=== PATIENT | female | born 1945 | race Caucasian/White ===

== ENCOUNTER 2018-07-01 14:53 | Emergency (ER) | payer OTHER ==
[~2018-07-01] VITALS: Ht 160 cm; Wt 54.4 kg
[2018-07-01 15:00] VITALS: BP 18/99; Ht 160 cm; Wt 54.4 kg
== END 2018-07-01 16:23 | disposition home or self-care (01) ==
LOC: ED 14:53
DX: S01.112A Laceration without foreign body of left eyelid and periocular area, initial encounter (principal); I10 Essential (primary) hypertension; Z85.841 Personal history of malignant neoplasm of brain; W01.0XXA Fall on same level from slipping, tripping and stumbling without subsequent striking against object, initial encounter; Y93.89 Activity, other specified; Y92.89 Other specified places as the place of occurrence of the external cause; Y99.8 Other external cause status

== ENCOUNTER 2019-03-13 18:37 | Inpatient (IN) | payer OTHER ==
[~2019-03-13] VITALS: Ht 154.9 cm; Wt 68.0 kg
[2019-03-13 18:44] VITALS: Ht 154.9 cm; Wt 68.0 kg
--- NOTE | 2019-03-13 18:48 | NUR ---
PT WAS B/B AMBULANCE FROM HOME FOR NEAR-SYNCOPE EPISODE AND ALOC. PT WAS STILL LETHARGIC, BUT FOLLOWS COMMAND, LOOKS TIRED. NO SOB, BREATHING EVEN, ON O2 2L. NC.
[2019-03-13 19:05] LABS: BASOPHIL % 0.3 % (0-2); PLATELET COUNT 177 x10^3mcL (130-400)
[2019-03-13 19:13] LABS: CALCIUM 8.4 mg/dL (8.5-10.1); CARBON DIOXIDE 27.1 mmol/L (21-32); CHLORIDE SERUM 107 mmol/L (98-107); GLUCOSE SERUM 125 mg/dL (74-106); POTASSIUM SERUM 4.1 mmol/L (3.5-5.1); SODIUM SERUM 144 mmol/L (136-145)
[2019-03-13 19:17] LABS: ALBUMIN 3.5 g/dL (3.4-5.0); ALKALINE PHOSPHATASE 106 U/L (46-116); ALT/SGPT 49 U/L (14-59); AST/SGOT 32 U/L (15-37); BILIRUBIN TOTAL 0.2 mg/dL (0.20-1.00); LIPASE 171 IU/L (73-393); TOTAL PROTEIN, SERUM 6.7 g/dL (6.4-8.2)
--- NOTE | 2019-03-13 19:39 | NUR ---
PT. LAYING IN BED, AAOX3, SLOW TO ANSWER, SOFT VOICE, NO ACUTE DISTRESS NOTED, INSTRUCTED PT TO PROVIDE URINES SAMPLE, PLACED URINE BEDPAN AT BEDSIDE, DENIES PAIN, VSS, WILL CONTINUE TO MONITOR.
--- NOTE | 2019-03-13 19:42 | NUR ---
REPORT RECEIVED FROM JAYLYN BURTON
[2019-03-13 21:40] LABS: UA SPECIFIC GRAVITY <=1.005 (1.005-1.035); microscopic required? YES; urine erythrocyte NEGATIVE (NEGATIVE)
[2019-03-13 21:59] LABS: AMPHETAMINE QUAL UR NONE DETECTED (See below)
--- NOTE | 2019-03-13 22:55 | NUR ---
CLEANED AND CHANGED PT GOWN AND LINENS
--- NOTE | 2019-03-13 23:05 | NUR ---
RECEIVED PT VIA GURNEY FROM E/D, ACCOMPANIED BY RN AND TRANSPORTER. PT A/A/O X 3 (PERSON, PLACE, PURPOSE), FORGETFUL, SLOW SPEECH, CALM, COOPERATIVE TO CARE; WEARS GLASSES (NOT W/ PT); FRENCH-SPEAKING ONLY, INGE BERRY BY BEDSIDE FOR TRANSLATION. ON TELE # 26, HR 88, SR + FREQUENT PVC'S, DENIES CHEST PAIN OR DISCOMFORT AT THIS TIME. SCD BY BEDSIDE. LUNGS CTAB, CHEST RISING EVENLY, 2LNC, 94%, NO ACUTE RESPIRATORY DISTRESS NOTED. ABD SOFT, ROUND, NON-TENDER, NORMOACTIVE BOWEL SOUNDS X 4 QUADS, LAST BM 03/12/19, DIARRHEA; WEARS DENTURES (NOT W/ PT); POOR PO INTAKE > 3DAYS, LOST > 10# X 1 MO. UA +FEW BACTERIA AND LEUKS, DENIES DYSURIA. GENERALIZED WEAKNESS, AMBULATORY @ BASELINE, BEDBOUND @ THIS TIME; FELL 03/13/19; C/O CHRONIC, INTERMITTENT SHARP BACK PAIN THAT IS EXACERBATED BY MOVEMENT; FALL RISK PROTOCOL IN PLACE. IV SITE LAC 18G, CDI. ORIENTED PT TO ROOM, BED CONTROLS, CALL LIGHT SYSTEM. SIDE RAILS UP X 2, BED IN LOW POSITION. WILL ENDORSE TO MICHEAL PARKINSON.
[2019-03-13 23:53] VITALS: BP 139/75
[2019-03-14 00:37] LABS: FREE T4 1.27 ng/dL (0.76-1.46); FREE THYROXINE INDEX 3.6 ug/dL (1.4-4.5)
[2019-03-14 00:38] LABS: T3 TOTAL 1.37 ng/mL
[2019-03-14] MEDS ORDERED: SEROQUEL25 MG PO (01:11)
[2019-03-14] MEDS ORDERED: SYNTHROID0.112 MG PO (01:13)
[2019-03-14] MEDS ORDERED: ENALAPRIL MALEA10 MG PO (01:14)
[2019-03-14] MEDS ORDERED: DONEPEZIL HCL10 MG PO (01:15)
[2019-03-14] MEDS ORDERED: NOR5 PO (01:16)
[2019-03-14] MEDS ORDERED: ATORVASTATIN CA40 M1 PO (01:22)
[2019-03-14] MEDS ORDERED: ASPIRIN ADULT L81 M3 PO (01:23)
[2019-03-14] MEDS ORDERED: HYDRALAZINE HCL25 MG PO (01:24)
[2019-03-14] MEDS ORDERED: VIMPAT100 M1 PO ×2 (01:25→11:29)
[2019-03-14] MEDS ORDERED: LIPI20 PO (01:28)
[2019-03-14 04:25] VITALS: BP 124/69
--- NOTE | 2019-03-14 05:00 | NUR ---
INFORMED DR. VILLASENOR REGARDING ORTHOSTIC VITALS.
--- NOTE | 2019-03-14 05:13 | NUR ---
PT SLEPT AT LONG INTERVALS. SHE WAS CALM THROUGHOUT THE NIGHT. SHE HAD NO C/O PAIN. SHE AMBULATED TO THE RESTROOM X1 W/ ASSISTANCE. NS 500 CC X1 GIVEN ORDERED. ALL NEEDS ATTENDED TO.
[2019-03-14 07:16] LABS: BASOPHIL % 0.1 % (0-2); PLATELET COUNT 168 x10^3mcL (130-400)
--- NOTE | 2019-03-14 07:45 | NUR ---
RECEIVED PT IN BED. ASSESSED AND DOCUMENTED. DENIES ANY PAIN THIS TIME. STABLE. SAFETY PRECAUTIONS ARE IN PLACE. WILL MONITOR.
[2019-03-14 07:52] LABS: CARBON DIOXIDE 24.8 mmol/L (21-32); CHLORIDE SERUM 112 mmol/L (98-107); CREATININE SERUM 0.7 mg/dL (0.6-1.0); GLUCOSE SERUM 89 mg/dL (74-106); MAGNESIUM 2.1 mg/dL (1.8-2.4); PHOSPHOROUS 3.9 mg/dL (2.5-4.9); POTASSIUM SERUM 3.8 mmol/L (3.5-5.1); SODIUM SERUM 147 mmol/L (136-145)
[2019-03-14 09:45] VITALS: BP 145/71
[2019-03-14 11:50] LABS: UA SPECIFIC GRAVITY <=1.005 (1.005-1.035); microscopic required? YES; urine erythrocyte NEGATIVE (NEGATIVE)
--- NOTE | 2019-03-14 13:00 | NUR ---
PT RESTING IN BED COMFORTABLY, STABLE. ATE LUNCH. FAMILY AT BEDSIDE.
[2019-03-14 13:50] VITALS: BP 152/74
--- NOTE | 2019-03-14 14:00 | NUR ---
AWARE ABOUT UA RESULT.
[2019-03-14] MEDS ORDERED: LEVOFLOXACIN500 M1 PO (14:43)
[2019-03-14 17:04] VITALS: BP 139/80
--- NOTE | 2019-03-14 17:30 | NUR ---
DISCHARGE INSTRUCTIONS GIVEN. PRESCRIPTION SENT TO PHARMACY BY DOCTOR. PB SIGNED AND SENT WITH PT. IV REMOVED AND DRESSING APPLIED. TELE REMOVED. PT IS STABLE. NO DIZZINESS, DENIES ANY PAIN. [employer] SUPER[employer]OR WHEELED PT DOWN TO LOBBY ACCOMPANIED WITH FAMILY. DC HOME.
== END 2019-03-14 17:33 | disposition home or self-care (01) | DRG 690 ==
LOC: ED 18:37 → DU 21:21
PROVIDERS: Emergency Medicine; ADMIT General Practice
DX: N39.0 Urinary tract infection, site not specified (principal); G90.8 Other disorders of autonomic nervous system; R55 Syncope and collapse; R73.9 Hyperglycemia, unspecified; I10 Essential (primary) hypertension; R91.1 Solitary pulmonary nodule; K80.20 Calculus of gallbladder without cholecystitis without obstruction; E03.9 Hypothyroidism, unspecified; F03.90 Unspecified dementia, unspecified severity, without behavioral disturbance, psychotic disturbance, mood disturbance, and anxiety; Z79.82 Long term (current) use of aspirin; Z86.73 Personal history of transient ischemic attack (TIA), and cerebral infarction without residual deficits; Z85.841 Personal history of malignant neoplasm of brain; Z92.21 Personal history of antineoplastic chemotherapy
CPT/HCPCS: 83880; 84439; G0378; J7040; Q0092; Q9967